=== PATIENT | male | born 1950 | race Caucasian/White ===

== ENCOUNTER 2017-03-20 06:09 | Day surgery (SDC) | payer MEDICARE ==
[2017-03-18 09:49] LABS: BASOPHILS 0.2 %; BASOPHILS ABSOLUTE 0.02 10/3/uL (0.0-0.16); EOSINOPHILS 1.7 %; EOSINOPHILS ABSOLUTE 0.16 10/3/uL (0.0-0.53); HEMATOCRIT 47.3 % (40.0-51.0); HEMOGLOBIN 15.8 g/dL (13.6-17.8); IMMATURE GRANULOCYTES 0.3 %; IMMATURE GRANULOCYTES ABSOLUTE 0.03 10/3/uL (0.0-0.11); LYMPHOCYTES ABSOLUTE 2.29 10/3/uL (0.67-4.30); MEAN CORPUS HGB CONC 33.4 g/dL (32.0-36.0); MEAN CORPUSCULAR HEMOGLOB 31.5 pg (26.0-34.0); MEAN CORPUSCULAR VOLUME 94.2 fL (80-100); MEAN PLATELET VOLUME 10.1 fL (9.2-13.0); MONOCYTES 8.4 %; NEUTROPHILS 65.4 %; NEUTROPHILS ABSOLUTE 6.23 10/3/uL (2.02-8.40); PLATELET COUNT 229 10/3/uL (150-400); RBC DISTRIBUTION WIDTH 13.8 % (12.0-16.0); RED CELL COUNT 5.02 10/6/uL (4.7-6.1); WHITE BLOOD CELLS 9.5 10/3/uL (4.5-10.5)
[2017-03-18 09:53] LABS: MANUAL DIFF NO %
[2017-03-18 10:05] LABS: BUN (BLOOD UREA NITROGEN) 18 MG/DL (6-23); CALCIUM, SERUM 9.5 MG/DL (8.5-10.4); CHLORIDE, SERUM 106 MMOL/L (96-112); CO2 (CARBON DIOXIDE) 28 MMOL/L (24-34); CREATININE 1.09 MG/DL (0.70-1.30); GFR AFRICAN AMERICAN 82 ML/MIN (>=60); GFR NON AFRICAN AMERICAN 70 ML/MIN (>=60); GLUCOSE, SERUM 107 MG/DL (60-99); POTASSIUM, SERUM 4.8 MMOL/L (3.5-5.3); SODIUM, SERUM 139 MMOL/L (135-148)
[~2017-03-20] VITALS: Ht 185.4 cm; Wt 81.6 kg
--- NOTE | ~2017-03-20 | OP ---
Record Of Operation [facility] [address] [place]. [address] NAME: JEISON ARIAS : 50 STATUS : REG [facility] PAT#: [id number] AGE: 66 ADM/REG DATE : 03/20/17 MR#: [id number] REPORT SERV DATE: 03/20/17 DICTATED BY: JAMES KIRKPATRICK DATE: 03/20/17 REPORT STATUS : Draft TRANSCRIBED BY: MODL DATE: 03/20/17 DATE OF PROCEDURE: 03/20/2017 PREOPERATIVE DIAGNOSIS: History of bladder cancer. POSTOPERATIVE DIAGNOSIS: History of bladder cancer. PROCEDURE: Cystoscopy, bladder biopsy and fulguration. ANESTHESIA: General. BLOOD LOSS: Less than 5 mL. FLUID REPLACEMENT: None. DRAINS: None. 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 FINDINGS: Appeared to have papillary regrowth at the tumor bed on the left trigone. There were also areas of what appeared to be new tumor on the posterior wall and possibly in the prostatic urethra. TECHNIQUE: The patient was identified, brought to the operating room, administered general anesthetic agent by the Anesthesia Service and intubated. He was positioned in the dorsal lithotomy position. Penis, groins, scrotum, and perineum were prepped and draped in the usual sterile fashion. A 22-Cuban cystoscopic sheath with 30-degree lens was used for cystourethroscopy. Anterior and bulbous urethra were normal. The prostatic urethra had some papillary growth on the left lateral lobe at about the level of the verumontanum. The bladder was entered. There was what appeared to be papillary growth at the bladder neck. Also, at the previous resection site, the left trigone had some growth, I could not tell if it was healing as it had a TURBT there six weeks ago. On the posterior wall of the bladder, there were also some dense abnormalities of blood vessels/papillary growth, but those were quite small. I used the cold cup biopsy forceps and biopsied the previous tumor bed. This was labeled as left trigone previous tumor. Approximately four to five biopsies were taken from that area. I then fulgurated it with the [employer] electrode. The posterior wall of bladder was biopsied and it was labeled as posterior wall. I took one biopsy from one of those and fulgurated all the visible tumors. I then did the same at the bladder neck. I took a biopsy with tumor there, fulgurated it, and finally in the prostatic urethra in the left lobe. When completed, I drained the bladder. The cystoscope was removed, and the procedure was terminated. Record Of Operation [facility] [address] [place]. [address] NAME: JEISON ARIAS : 50 STATUS : REG [facility] PAT#: [id number] AGE: 66 ADM/REG DATE : 03/20/17 MR#: [id number] REPORT SERV DATE: 03/20/17 DICTATED BY: JAMES KIRKPATRICK DATE: 03/20/17 REPORT STATUS : Draft TRANSCRIBED BY: CHANTELLE DATE: 03/20/17 PF/CHANTELLE James Kirkpatrick M.D. / [id number] CC: Gabriella Ken M.D.
[~2017-03-20 06:09] MED LIST: LIDODERM T; NEUR800 PO; NORCO1 TAB PO; PAXIL40 MG PO; PRILO PO; PROVENTSOL INH; SYMBICORT 160/41 INH INH; V5 PO; VALIUM10 MG PO
[2017-03-20 07:04] LABS: ASCORBIC ACID (UR NOT ORDER) NEG (NEG); BILIRUBIN, URINE NEGATIVE (NEG); KETONE, URINE NEGATIVE (NEG); LEUKOCYTE ESTERASE(NOT OR SMALL (NEG); WBC (NOT ORDERED) (RFLEX) 32 (0-5)
== END 2017-03-20 13:30 | disposition home or self-care (01) ==
LOC: SDC 06:09
PROVIDERS: Urology
PROC: 0TBB8ZX Excision of Bladder, Via Natural or Artificial Opening Endoscopic, Diagnostic (ICD-10-PCS; principal; 2017-03-20 07:45)
DX: N30.30 Trigonitis without hematuria (principal); N30.80 Other cystitis without hematuria; N34.2 Other urethritis; N32.89 Other specified disorders of bladder; Z85.51 Personal history of malignant neoplasm of bladder; J44.9 Chronic obstructive pulmonary disease, unspecified; K21.9 Gastro-esophageal reflux disease without esophagitis; F17.210 Nicotine dependence, cigarettes, uncomplicated; Z90.5 Acquired absence of kidney; Z79.899 Other long term (current) drug therapy; Z98.890 Other specified postprocedural states
CPT/HCPCS: 80048; 81001; 85025; 87086; 88305; 88307; 93005; J2250; J2405; J3010